=== PATIENT | male | born 1985 | race Caucasian/White ===

== ENCOUNTER 2016-06-10 10:31 | Emergency (ER) | payer SELFPAY ==
[~2016-06-10] VITALS: Ht 185.4 cm; Wt 95.0 kg
[2016-06-10 10:35] VITALS: BP 172/72; PULSE 115; RESP 18; TEMP 98.2; O2SAT 98
[2016-06-10] MEDS ORDERED: ZANT150T2 PO (10:48)
--- NOTE | 2016-06-10 10:58 | PD ---
HPI . left finger: ring crush injury and laceration Chief Complaint: Injury Time Seen by Provider: 10:58 Travel History International Travel<30 days: No Contact w/Intl Traveler<30days: No Traveled to known affect area: No History of Present Illness HPI 30 yr old right hand dominant male here with c/o left ring finger laceration and crush injury. Patient was lifting weight at the [facility] Work Release program and somehow accidentally dropped weights on his hand. apparently patient was supposed to visit the correctional facility[facility] prior to coming to [place] however there was some mishap in communication and patient was transferred [place]. I had already started examining the patient and ordered x- rays, when the correctional facility officer Noemi showed up and demanded the patient be released back to the correctional facility for further medical care. Xrays showed a distal tuft fracture which I discussed with Officer Noemi, who was in constant contact with the correctional facility. They continued to insist the patient be released. Initially there was some confusion, but I discussed with Dr. Merrill Lehman who informed me that the prisoner is a riggins of the State and ultimately they can sign him out of the hospital AMA. In the interim I had spoken with the hand surgeon customer contact sales associate who recommended repair of the laceration and even offered to come to the ED to perform it, however Officer Noemi declined and insisted on signing AMA papers. I once again discussed with Dr. Lehman and he notified me that it was up to the immigration services officer to determine if the patient would remain in the ED. PFSH Past Medical History Medical History: Denies Significant Hx Tetanus Vaccination: < 5 Years Influenza Vaccination: No Past Surgical History Tonsillectomy: Yes Social History Alcohol Use: No Tobacco Use: No Substance Use: No Allergies-Medications (Allergen,Severity, Reaction): Coded Allergies: Ceclor (Verified Allergy, Severe, Anaphylaxis, 06/10/16) Reported Meds & Prescriptions Reported Meds & Active Scripts Active Reported Zantac (Ranitidine HCl) 150 Mg Tab 150 Mg PO BID Review of Systems General / Constitutional: No: Fever Eyes: No: Visual changes HENT: No: Headaches Cardiovascular: No: Chest Pain or Discomfort Respiratory: No: Shortness of Breath Gastrointestinal: No: Abdominal Pain Genitourinary: No: Dysuria Musculoskeletal: Positive: Pain (left ring finger) Skin: Positive Other (laceration left ring finger), No Rash Neurologic: No: Weakness Psychiatric: No: Depression Endocrine: No: Polydipsia Hematologic/Lymphatic: No: Easy Bruising Physical Exam Narrative GENERAL: AAO x 3, no acute distress, Well-nourished, well-developed patient. SKIN: Warm and dry. No visible rashes or bruising. open fracture of left ring finger. bone is not exposed. nail is off and nailbed is exposed. There is a small 0.3 cm lac extending into the nail bed. and the laceration wraps around HEAD: Normocephalic and atraumatic. EYES: No scleral icterus. No injection or drainage. EOM intact, PERRLA ENT: No nasal drainage noted. Mucous membranes pink. Airway patent. NECK: Supple, trachea midline. No JVD. CARDIOVASCULAR: Regular rate and rhythm without murmurs, gallops, or rubs. RESPIRATORY: Breath sounds equal bilaterally. No accessory muscle use. No rhonchi or rales. GASTROINTESTINAL: Abdomen soft, non-tender, nondistended. EXTREMITIES: No cyanosis or edema. BACK: Nontender without obvious deformity. No CVA tenderness. PSYCH: AAO x 3, normal affect. Data Data Last Documented VS Vital Signs Date Time Temp Pulse Resp B/P Pulse Ox O2 Delivery O2 Flow Rate FiO2 06/10/16 10:49 Room Air 06/10/16 10:35 98.2 115 18 172/72 98 Orders Hand, Complete ([id number]) (06/10/16 11:06) Ketorolac Inj (Toradol Inj) (06/10/16 11:15) Lidocaine 1% Inj (50 Ml) (Xylocaine 1% I (06/10/16 11:30) MDM Medical Decision Making Medical Screen Exam Complete: Yes Emergency Medical Condition: Yes Medical Record Reviewed: Yes Differential Diagnosis laceration, fracture, partial amputation Narrative Course 30 yr old right hand dominant male here with c/o left ring finger laceration and crush injury. Patient was lifting weight at the [employer] Work Release program and somehow accidentally dropped weights on his hand. apparently patient was supposed to visit the correctional facility[facility] prior to coming to [place] however there was some mishap in communication and patient was transferred [place]. I had already started examining the patient and ordered x- rays, when the correctional facility officer Noemi showed up and demanded the patient be released back to the correctional facility for further medical care. Xrays showed a distal tuft fracture which I discussed with Officer Noemi, who was in constant contact with the correctional facility. They continued to insist the patient be released. Initially there was some confusion, but I discussed with Dr. Merrill Lehman who informed me that the prisoner is a riggins of the State and ultimately they can sign him out of the hospital AMA. In the interim I had spoken with the hand surgeon customer contact sales associate who recommended repair of the laceration and even offered to come to the ED to perform it, however Officer Noemi declined and insisted on signing AMA papers. I once again discussed with Dr. Lehman and he notified me that it was up to the immigration services officer to determine if the patient would remain in the ED. He is up to date on tetanus. Patient seen and examined. X-ray shows distal tuft fracture. I recommended repair of this laceration by myself or the hand surgeon customer contact sales associate. Apparently the immigration services officer states that the medical Staff at the correctional facility must first determine whether or not the patient needs to be evaluated in the emergency department before transport to the ED. Unfortunately the immigration services officer declined and signed the patient out AMA. Patient was given a shot of Toradol for pain control while in the ED. Our nurse performed general wound care to the area and provided a clean dressing prior to leaving the emergency department. Diagnosis Primary Impression: Left against medical advice Disposition: 07 AGAINST MEDICAL ADVICE Condition: Stable Tricia Underwood Jun 10, 2016 10:58
[2016-06-10] MEDS ORDERED: KETOROLAC TROMETHAMINE 60 MG/2 ML (IM) VIAL IM ONE (11:15)
[2016-06-10] MEDS ORDERED: LIDOCAINE HCL 1% 50 ML VIAL INFIL ONE (11:30)
--- NOTE | 2016-06-10 11:48 | RADRPT ---
EXAM DATE/TIME: 06/10/2016 11:27 [facility] COMPARISON: No previous studies available for comparison. INDICATIONS : Smashed left hand between 2 weights today. MEDICAL HISTORY : None. SURGICAL HISTORY : None. ENCOUNTER: Initial ACUITY: 1 day PAIN SCORE: 10/10 LOCATION: Left hand FINDINGS: There is a comminuted fracture of the distal tuft of the 4th digit. The DIP joint is intact. There are several displaced fragments. Remainder of the osseous structures and are intact. CONCLUSION: Comminuted and displaced fracture of the distal tuft of the 4th digit. Julicoesar Nolasco MD on June 10, 2016 at 11:46 Board Certified Radiologist. This report was verified electronically.
== END 2016-06-10 12:09 | disposition left against medical advice (07) ==
LOC: NEPK 10:31
DX: S62.635A Displaced fracture of distal phalanx of left ring finger, initial encounter for closed fracture (principal); S61.215A Laceration without foreign body of left ring finger without damage to nail, initial encounter; W23.0XXA Caught, crushed, jammed, or pinched between moving objects, initial encounter; Y93.B3 Activity, free weights; Y92.149 Unspecified place in prison as the place of occurrence of the external cause
CPT/HCPCS: 73130; 96372; 99283; J1885